=== PATIENT | male | born 1935 | race Caucasian/White ===

== ENCOUNTER 2020-03-17 10:17 | Inpatient (IN) | payer MEDICARE, SELFPAY ==
[~2020-03-17] VITALS: Ht 185.4 cm; Wt 68.0 kg
[2020-03-17 10:42] VITALS: Ht 185.4 cm; Wt 68.0 kg
[2020-03-17 12:00] LABS: PLATELET COUNT 273 x10^3mcL (152-348)
[2020-03-17 12:04] LABS: RED CELL DISTRIBUTION WIDTH 14.8 % (12.1-16.2)
[2020-03-17 12:16] LABS: ALKALINE PHOSPHATASE 87 U/L (46-116); ALT/SGPT 30 U/L (16-63); BILIRUBIN TOTAL 0.9 mg/dL (0.20-1.00); C REACTIVE PROTEIN 9.5 mg/dL (<=0.9); CARBON DIOXIDE 19.3 mmol/L (21-32); CHLORIDE SERUM 101 mmol/L (98-107); CREATININE SERUM 1.5 mg/dL (0.7-1.3); GLUCOSE SERUM 235 mg/dL (74-106); LACTIC DEHYDROGENASE (LDH) 521 U/L (100-190); POTASSIUM SERUM 3.7 mmol/L (3.5-5.1); SODIUM SERUM 139 mmol/L (136-145); TOTAL PROTEIN, SERUM 6.6 g/dL (6.4-8.2)
[2020-03-17 12:39] LABS: ALBUMIN 2.8 g/dL (3.4-5.0); AST/SGOT 39 U/L (15-37); CALCIUM 8.8 mg/dL (8.5-10.1)
[2020-03-17 12:49] LABS: UA SPECIFIC GRAVITY >=1.030 (1.005-1.035); microscopic required? YES; urine erythrocyte 1+ (NEGATIVE)
[2020-03-17 13:57] LABS: BAND NEUTROPHIL 2 % (0-10); MONOCYTE 5 % (0-7); SEGMENTED NEUTROPHILS 88 % (37-75)
[2020-03-17 13:58] LABS: PLATELET MORPHOLOGY PLATELETS NORMAL; rbc morphology (normal/abnorm) NORMAL (NORMAL)
[2020-03-18 05:13] LABS: CALCIUM 8.5 mg/dL (8.5-10.1); CARBON DIOXIDE 20.8 mmol/L (21-32); CHLORIDE SERUM 104 mmol/L (98-107); CREATININE SERUM 1.4 mg/dL (0.7-1.3); GLUCOSE SERUM 250 mg/dL (74-106); MAGNESIUM 2.4 mg/dL (1.8-2.4); PHOSPHOROUS 3.9 mg/dL (2.5-4.9); POTASSIUM SERUM 3.6 mmol/L (3.5-5.1); SODIUM SERUM 141 mmol/L (136-145)
[2020-03-18 05:50] LABS: BASOPHIL % 0.7 % (0.2-1.5); PLATELET COUNT 258 x10^3mcL (152-348)
[2020-03-18 20:15] VITALS: BP 109/80
[2020-03-18 23:51] LABS: PLATELET COUNT 283 x10^3mcL (152-348)
[2020-03-18 23:59] LABS: RED CELL DISTRIBUTION WIDTH 14.9 % (12.1-16.2)
[2020-03-19 01:47] LABS: BAND NEUTROPHIL 8 % (0-10); MONOCYTE 1 % (0-7); SEGMENTED NEUTROPHILS 86 % (37-75); rbc morphology (normal/abnorm) NORMAL (NORMAL)
[2020-03-19 04:47] VITALS: BP 103/54
[2020-03-19 08:23] LABS: BASOPHIL % 0.3 % (0.2-1.5); PLATELET COUNT 283 x10^3mcL (152-348)
[2020-03-19 08:46] LABS: C REACTIVE PROTEIN 4.2 mg/dL (<=0.9); CALCIUM 8.6 mg/dL (8.5-10.1); CARBON DIOXIDE 26.4 mmol/L (21-32); CHLORIDE SERUM 108 mmol/L (98-107); CREATININE SERUM 1.3 mg/dL (0.7-1.3); GLUCOSE SERUM 269 mg/dL (74-106); MAGNESIUM 2.7 mg/dL (1.8-2.4); PHOSPHOROUS 3.2 mg/dL (2.5-4.9); POTASSIUM SERUM 3.8 mmol/L (3.5-5.1); SODIUM SERUM 145 mmol/L (136-145)
[2020-03-19 08:58] LABS: BILIRUBIN DIRECT 0.48 mg/dL (0.0-0.2); BILIRUBIN TOTAL 0.9 mg/dL (0.20-1.00)
[2020-03-19 08:59] LABS: ALBUMIN 2.7 g/dL (3.4-5.0); TOTAL PROTEIN, SERUM 6.1 g/dL (6.4-8.2)
[2020-03-19 10:30] LABS: RED CELL DISTRIBUTION WIDTH 14.6 % (12.1-16.2)
[2020-03-19 10:42] LABS: CHOLESTEROL/HDL RATIO 3.7
[2020-03-19 13:08] VITALS: BP 129/68
[2020-03-19 17:46] VITALS: BP 119/51
[2020-03-19 20:00] VITALS: BP 126/60
[2020-03-19 21:26] VITALS: BP 85/52
[2020-03-20] VITALS (9 sets, daily range): BP systolic 108–144; BP diastolic 65–109
[2020-03-20 14:25] LABS: BILIRUBIN DIRECT 0.5 mg/dL (0.0-0.2)
[2020-03-20 14:26] LABS: ALBUMIN 2.7 g/dL (3.4-5.0); TOTAL PROTEIN, SERUM 5.8 g/dL (6.4-8.2)
[2020-03-21 05:24] VITALS: BP 101/60
[2020-03-21 09:23] VITALS: BP 99/61
[2020-03-21 09:37] LABS: PLATELET COUNT 302 x10^3mcL (152-348)
[2020-03-21 10:09] LABS: RED CELL DISTRIBUTION WIDTH 15.4 % (12.1-16.2)
[2020-03-21 10:20] LABS: CALCIUM 8.4 mg/dL (8.5-10.1); CARBON DIOXIDE 25.5 mmol/L (21-32); CHLORIDE SERUM 107 mmol/L (98-107); GLUCOSE SERUM 254 mg/dL (74-106); POTASSIUM SERUM 3.7 mmol/L (3.5-5.1); SODIUM SERUM 145 mmol/L (136-145)
[2020-03-21 10:40] LABS: BILIRUBIN DIRECT 0.53 mg/dL (0.0-0.2)
[2020-03-21 10:41] LABS: ALBUMIN 2.5 g/dL (3.4-5.0); TOTAL PROTEIN, SERUM 5.9 g/dL (6.4-8.2)
[2020-03-21 10:58] LABS: CREATININE SERUM 1.3 mg/dL (0.7-1.3)
[2020-03-21 13:57] VITALS: BP 91/42
[2020-03-21 16:53] VITALS: BP 87/47
[2020-03-21 17:30] LABS: ATYPICAL LYMPH 1 %; BAND NEUTROPHIL 2 % (0-10); BASOPHIL 0 % (0-2); MONOCYTE 1 % (0-7); SEGMENTED NEUTROPHILS 92 % (37-75)
[2020-03-21 17:33] LABS: PLATELET MORPHOLOGY PLATELETS NORMAL; rbc morphology (normal/abnorm) ABNORMAL (NORMAL); schistocyte (helmet cell) 1+
[2020-03-21 22:06] VITALS: BP 116/60
[2020-03-22] VITALS (8 sets, daily range): BP systolic 50–134; BP diastolic 18–91
[2020-03-22 09:10] LABS: PLATELET COUNT 342 x10^3mcL (152-348)
[2020-03-22 09:56] LABS: ALBUMIN 2.4 g/dL (3.4-5.0); BILIRUBIN DIRECT 0.61 mg/dL (0.0-0.2); BILIRUBIN TOTAL 1.1 mg/dL (0.20-1.00); TOTAL PROTEIN, SERUM 5.3 g/dL (6.4-8.2)
[2020-03-22 10:08] LABS: CALCIUM 8.3 mg/dL (8.5-10.1); CARBON DIOXIDE 25.3 mmol/L (21-32); CHLORIDE SERUM 108 mmol/L (98-107); CREATININE SERUM 1.4 mg/dL (0.7-1.3); GLUCOSE SERUM 341 mg/dL (74-106); POTASSIUM SERUM 4.1 mmol/L (3.5-5.1); SODIUM SERUM 145 mmol/L (136-145)
[2020-03-22 11:41] LABS: RED CELL DISTRIBUTION WIDTH 15.1 % (12.1-16.2)
[2020-03-22 15:42] LABS: BAND NEUTROPHIL 0 % (0-10); BASOPHIL 0 % (0-2); MONOCYTE 6 % (0-7); SEGMENTED NEUTROPHILS 89 % (37-75); burr cell (echinocyte) 1+; rbc morphology (normal/abnorm) ABNORMAL (NORMAL)
[2020-03-22 15:43] LABS: ovalocyte/elliptocyte 1+
[2020-03-23] VITALS (7 sets, daily range): BP systolic 85–127; BP diastolic 47–70
[2020-03-23 10:28] LABS: CALCIUM 8.4 mg/dL (8.5-10.1); CARBON DIOXIDE 21.2 mmol/L (21-32); CHLORIDE SERUM 109 mmol/L (98-107); CREATININE SERUM 1.4 mg/dL (0.7-1.3); GLUCOSE SERUM 309 mg/dL (74-106); POTASSIUM SERUM 4.4 mmol/L (3.5-5.1); SODIUM SERUM 147 mmol/L (136-145)
[2020-03-23 10:33] LABS: ALKALINE PHOSPHATASE 87 U/L (46-116); ALT/SGPT 31 U/L (16-63); AST/SGOT 33 U/L (15-37); BILIRUBIN TOTAL 0.59 mg/dL (0.20-1.00)
[2020-03-23 10:34] LABS: ALBUMIN 2.8 g/dL (3.4-5.0); TOTAL PROTEIN, SERUM 5.9 g/dL (6.4-8.2)
== END 2020-03-23 22:00 | DRG 871 ==
LOC: ED 10:17 → DU 19:43
PROVIDERS: Emergency Medicine; ADMIT Family Medicine; ATTEND Family Medicine
PROC: 02HV33Z Insertion of Infusion Device into Superior Vena Cava, Percutaneous Approach (ICD-10-PCS; principal; 2020-03-17)
PROC: XW033E5 Introduction of Remdesivir Anti-infective into Peripheral Vein, Percutaneous Approach, New Technology Group 5 (ICD-10-PCS; 2020-03-18)
DX: A41.89 Other specified sepsis (principal); U07.1 COVID-19; J96.01 Acute respiratory failure with hypoxia; N17.0 Acute kidney failure with tubular necrosis; J12.82 Pneumonia due to coronavirus disease 2019; I63.9 Cerebral infarction, unspecified; I82.622 Acute embolism and thrombosis of deep veins of left upper extremity; I46.9 Cardiac arrest, cause unspecified; I10 Essential (primary) hypertension; F03.90 Unspecified dementia, unspecified severity, without behavioral disturbance, psychotic disturbance, mood disturbance, and anxiety; I48.91 Unspecified atrial fibrillation; E11.65 Type 2 diabetes mellitus with hyperglycemia; R13.10 Dysphagia, unspecified; Z79.899 Other long term (current) drug therapy
CPT/HCPCS: 36600; 76770; 82962; 83880; 85378; 87804; 92526-GN; 92610-GN; 97110-GP; G0378; J0282; J1100; J1265; J1644; J2060; J2543; J2704; J3370; J3490; J7030; J7040; J7050; J7070; U0003